=== PATIENT | female | born 1950 | race Caucasian/White ===

== ENCOUNTER 2016-08-13 17:18 | Emergency (ER) | payer MEDICARE, OTHER ==
[~2016-08-13] VITALS: Ht 165.1 cm; Wt 98.9 kg
[~2016-08-13 17:18] MED LIST: ACET325T21 PO; ANAS1TAB3 PO; APIX5TAB PO; ASPI-482 PO; CALC200T3 PO; CARV3.122 PO; CETI10TA22 PO; CHOL20002 PO; CIPR250T30 PO; DILT120C80 PO; DILT240C60 PO; DRON400T PO; FLUT1DIS5 IH; FURO-68 PO; FURO-69 PO; LANS30CA66 PO; LISI-334 PO; LISI-338 PO; LORA10TA68 PO; MAGN400C PO; METO25TA4 PO; METO25TA9 PO; METO50TA2 PO; MOME13HF2 IH; MULT1TAB52 PO; OMEG1CAP27 PO; ONDA4TAB7 IV; PROVENTIL HFA6.7 GM IH; SOTA120T14 PO; TRIA1TAB3 PO; [UNRECOGNIZED DRUG - CODE] PO
[2016-08-13 17:47] LABS: BASO # 0.1 x10^3/uL (0.0-0.2); BASO % 1 % (0-3); EOS % 3 % (0-3); HEMATOCRIT 41.3 % (36.0-47.0); HEMOGLOBIN 13.6 g/dL (12.0-15.5); LYMPH # 1.4 x10^3/uL (1.0-4.8); LYMPH % 14 % (24-48); MEAN CORPUSCULAR HEMOGLOBIN 28 pg (25-35); MEAN CORPUSCULAR HGB CONC 33 g/dL (31-37); MEAN CORPUSCULAR VOLUME 87 fL (79-100); MONO % 8 % (0-9); NEUT % 75 % (31-73); PLATELET COUNT 176 x10^3/uL (140-400); RED BLOOD COUNT 4.78 x10^6/uL (3.50-5.40)
[2016-08-13 18:01] LABS: CALCIUM 8.9 mg/dL (8.5-10.1); CREATININE 0.9 mg/dL (0.6-1.0); GFR 62.5; POTASSIUM 4.2 mmol/L (3.5-5.1)
--- NOTE | 2016-08-13 18:27 | PHYS DOC ---
Past Medical History Past Medical History: A-Fib, CAD, Cancer, CHF, Other Additional Past Medical Histor: breast cancer, cardiomyopathy Past Surgical History: Appendectomy, Cancer Surgery, Hysterectomy, Knee Replacement, Oophorectomy, Pacemaker, Other Additional Past Surgical Histo: stomach tumor removed, oral tumor removed, cardiac ablation Alcohol Use: None Drug Use: None Adult General Chief Complaint Chief Complaint: DIZZY/LIGHT HEADED HPI HPI Patient is a 66 year old female with A fib POD 2 from [place] ablation at [facility] who presents with 3 episodes of presyncope after walking. States she will stand up and walk and be fine. Will sit down and feels lightheaded, palpitations, and some vision narrowing for some seconds to minutes. Denies current palpitations. No chest pain, dyspnea, f/c, n/v, diarrhea, dysuria, leg pain or swelling, cough. She called [facility] cardiology clinic and was instructed to go to the ED, so she came here because it is closer to home. She is currently asymptomatic. She saw Dr. Lyles, cardiology, most recently for procedure at [facility]. Review of Systems Review of Systems Constitutional: Denies fever or chills [] Eyes: Denies change in visual acuity, redness, or eye pain [] HENT: Denies nasal congestion or sore throat [] Respiratory: Denies cough or shortness of breath [] Cardiovascular: No additional information not addressed in HPI [] GI: Denies abdominal pain, nausea, vomiting, bloody stools or diarrhea [] : Denies dysuria or hematuria [] Musculoskeletal: Denies back pain or joint pain [] Integument: Denies rash or skin lesions [] Neurologic: Denies headache, focal weakness or sensory changes [] Endocrine: Denies polyuria or polydipsia [] Current Medications Current Medications Current Medications Medications (Trade) Dose Ordered Sig/Harry Start Time Stop Time Status Last Admin Dose Admin Metoprolol Succinate (Toprol Xl) 75 mg 1X ONCE 08/13/16 19:00 08/13/16 19:01 DC 08/13/16 19:06 75 MG Metoprolol Tartrate (Lopressor) 5 mg 1X ONCE 08/13/16 18:45 08/13/16 19:02 DC Allergies Allergies Allergies Coded Allergies Type Severity Reaction Last Updated Verified thiopental Allergy Intermediate Rash 08/01/13 Yes amoxicillin Adverse Reaction Intermediate headache 07/01/15 Yes clavulanic acid Adverse Reaction Intermediate headache 07/01/15 Yes Physical Exam Physical Exam Constitutional: Well developed, well nourished, no acute distress, non-toxic appearance. [] HENT: Normocephalic, atraumatic, bilateral external ears normal, oropharynx moist, nose normal. [] Eyes: PERRLA, EOMI. [] Neck: Normal range of motion, supple. [] Cardiovascular: Irregular rhythm [] Lungs & Thorax: Bilateral breath sounds clear to auscultation [] Abdomen: Bowel sounds normal, soft, no tenderness. [] Skin: Warm, dry, no erythema, no rash. [] Back: No tenderness, no CVA tenderness. [] Extremities: No tenderness, ROM intact, bilateral 1+ lower extremity edema. [] Neurologic: Alert and oriented X 3, normal motor function, normal sensory function, no focal deficits noted. [] Psychologic: Affect normal, judgement normal, mood normal. [] Current Patient Data Vital Signs Vital Signs Date Time Temp Pulse Resp B/P (MAP) Pulse Ox O2 Delivery O2 Flow Rate FiO2 08/13/16 20:00 64 28 109/57 (74) 94 Room Air 08/13/16 17:20 98.3 98.3 Lab Values Laboratory Tests Test 08/13/16 17:37 White Blood Count 10.0 x10^3/uL (4.0-11.0) Red Blood Count 4.78 x10^6/uL (3.50-5.40) Hemoglobin 13.6 g/dL (12.0-15.5) Hematocrit 41.3 % (36.0-47.0) Mean Corpuscular Volume 87 fL (79-100) Mean Corpuscular Hemoglobin 28 pg (25-35) Mean Corpuscular Hemoglobin Concent 33 g/dL (31-37) Red Cell Distribution Width 15.0 % (11.5-14.5) H Platelet Count 176 x10^3/uL (140-400) Neutrophils (%) (Auto) 75 % (31-73) H Lymphocytes (%) (Auto) 14 % (24-48) L Monocytes (%) (Auto) 8 % (0-9) Eosinophils (%) (Auto) 3 % (0-3) Basophils (%) (Auto) 1 % (0-3) Neutrophils # (Auto) 7.5 x10^3uL (1.8-7.7) Lymphocytes # (Auto) 1.4 x10^3/uL (1.0-4.8) Monocytes # (Auto) 0.8 x10^3/uL (0.0-1.1) Eosinophils # (Auto) 0.2 x10^3/uL (0.0-0.7) Basophils # (Auto) 0.1 x10^3/uL (0.0-0.2) Sodium Level 139 mmol/L (136-145) Potassium Level 4.2 mmol/L (3.5-5.1) Chloride Level 102 mmol/L (98-107) Carbon Dioxide Level 31 mmol/L (21-32) Anion Gap 6 (6-14) Blood Urea Nitrogen 15 mg/dL (7-20) Creatinine 0.9 mg/dL (0.6-1.0) Estimated GFR (Cockcroft-Gault) 62.5 Glucose Level 144 mg/dL (70-99) H Calcium Level 8.9 mg/dL (8.5-10.1) Laboratory Tests 08/13/16 17:37 Laboratory Tests 08/13/16 17:37 EKG EKG EKG as interpreted by me as atrial fibrillation, rate 75, no ST-T changes Course & Med Decision Making Course & Med Decision Making Pertinent Labs and Imaging studies reviewed. (See chart for details) Laboratory evaluation is unremarkable. Medtr[employer] ICD/pacemaker interrogation reveals multiple episodes of atrial fibrillation since last interrogation yesterday morning, 11%, lipase lasting about 12 minutes. Times correlate with times of symptoms. She had a for ablation with RVR in the 110s and 120s while observed here. I discussed the case with Dr. Vieyra, [facility] cardiology, who recommends dose of metoprolol IV for rate control and is willing to accept for admission if patient wishes; otherwise recommends dispo appropriately after response and to follow up with Dr. Lyles closely. Metoprolol IV was ordered, but she converted prior to administration to a normal sinus rhythm. She was given early dose of metoprolol XR at that time. Admission was offered. However, she is ambulatory without symptoms with a steady gait and wants to go home for outpatient f/u. Return precautions given. She and understand and agree with plan. Dragon Disclaimer Dragon Disclaimer This electronic medical record was generated, in whole or in part, using a voice recognition dictation system. Departure Departure Impression: Primary Impression: Afib Disposition: HOME, SELF-CARE Condition: STABLE Referrals: LEXY DE LA CRUZ (PCP) Patient Instructions: Atrial Fibrillation, [id number] Additional Instructions: Follow-up with your journal entry audit clerk on Tuesday morning. Return for any concerns. Problem Qualifiers Primary Impression: Afib Atrial fibrillation type: paroxysmal Qualified Codes: I48.0 - Paroxysmal atrial fibrillation Maritza BATISTA MD Aug 13, 2016 18:26
[2016-08-13] MEDS ORDERED: METOPROLOL TARTRATE 5 MG/5 ML VIAL. IVP ONE (18:45)
[2016-08-13] MEDS ORDERED: METOPROLOL SUCC 24HR ER 25 MG TAB.ER.24H. PO ONE (19:00)
[2016-08-13 20:00] VITALS: BP 109/57
--- NOTE | 2016-08-14 10:54 | EKG ---
[facility] [address] [place] [address] Test Date: 2016-08-13 Test Time: 17:26:23 Pat Name: JENNY NANCE Department: Room: Gender: F Academic Assistant: : 1950 Requested By: Maritza BATISTA Order Number: [id number] Reading MD: Brandy Hemphill Measurements Intervals [place] Rate: 75 P: NC: QRS: 27 QRSD: 96 T: 65 QT: 400 QTc: 449 Interpretive Statements SINUS RHYTHM T ABNORMALITY IN HIGH LATERAL LEADS Electronically Signed On 08-14-2016 19:42:15 CDT by Brandy Hemphill
== END 2016-08-13 20:10 | disposition home or self-care (01) ==
LOC: ER 17:18
DX: I48.0 Paroxysmal atrial fibrillation (principal); R55 Syncope and collapse; I25.10 Atherosclerotic heart disease of native coronary artery without angina pectoris; I50.9 Heart failure, unspecified; I42.9 Cardiomyopathy, unspecified; Z90.49 Acquired absence of other specified parts of digestive tract; Z90.710 Acquired absence of both cervix and uterus; Z96.659 Presence of unspecified artificial knee joint; Z95.0 Presence of cardiac pacemaker; Z90.721 Acquired absence of ovaries, unilateral; Z88.8 Allergy status to other drugs, medicaments and biological substances; Z88.1 Allergy status to other antibiotic agents
CPT/HCPCS: 36415; 80048; 85027; 93005; 99285-25

== ENCOUNTER 2017-06-03 18:45 | Emergency (ER) | payer MEDICARE, OTHER | END 2017-06-03 21:58 | disposition home or self-care (01) | LOC: ER 21:58 | DX: H72.92 Unspecified perforation of tympanic membrane, left ear (principal); I48.91 Unspecified atrial fibrillation; I50.9 Heart failure, unspecified; I25.10 Atherosclerotic heart disease of native coronary artery without angina pectoris; Z88.1 Allergy status to other antibiotic agents; Z88.8 Allergy status to other drugs, medicaments and biological substances | CPT/HCPCS: 99283 ==

== ENCOUNTER → 2019-08-24 | Outpatient (CLI) | payer MEDICARE ==
[2017-06-03 20:47] VITALS: BP 95/54
[~2019-08-24] MED LIST changes: -ANAS1TAB3 PO; +ANAS1TAB47 PO; +CARV3.1210 PO; -CARV3.122 PO; -CETI10TA22 PO; +CETI10TA24 PO; +DIGO125T3 PO; -DILT120C80 PO; +DILT120C99 PO; +DOFE250C PO; +METO-239 PO; +METO-269 PO; -METO25TA9 PO; -METO50TA2 PO; +METO50TA6 PO; +MULT-445 PO; -MULT1TAB52 PO; +OFLO5DRO7 AS; +SPIR25TA5 PO
--- NOTE | 2019-08-24 15:21 | CARD ---
MR#: [id number] Date of Study: 08/24/2019 Ordering Physician: MICHELLE OCASIO, Referring Physician: MICHELLE OCASIO, Tech: Mitra Espino [facility] APPROVED REPORT EXAM: Two-dimensional and M-mode echocardiogram with Doppler and color Doppler. Other Information Quality : Good INDICATION Atrial Fibrillation Hx: Ablation Surgery/Intervention ICD/Pacemaker: Date: 2012 2D DIMENSIONS RVDd3.0 (2.9-3.5cm)Left Atrium(2D)4.2 (1.6-4.0cm) IVSd1.7 (0.7-1.1cm)Aortic Root(2D)2.8 (2.0-3.7cm) LVDd4.0 (3.9-5.9cm)LVOT Diameter2.1 (1.8-2.4cm) PWd1.0 (0.7-1.1cm)LVDs2.5 (2.5-4.0cm) FS (%) 36.1 %SV45.9 ml LVEF(%)65.0 (>50%) Aortic Valve AoV Peak Padilla.503.3cm/sAoV HXO406.7cm AO Peak GR.101.3mmHgLVOT Peak Padilla.459.4cm/s AO Mean GR.60mmHgAVA (VMAX)3.17cm2 LANCE (VTI)3.10cm2 Mitral Valve MV E Bcyvnxpd854.5cm/sMV DECEL EOAT288ca MV A Ulnxphyr52.9cm/sE/A Ratio2.2 Tricuspid Valve TR P. Vfgmxodj186qm/sRAP NEVPNQLE0dxCk TR Peak Gr.28ucNsPPXC71qdBn Pulmonary Vein S1 Qklqqhhe03.6cm/sD2 Owdkcjea48.5cm/s LEFT VENTRICLE The left ventricle is normal size. There is moderate asymmetric septal hypertrophy. The left ventricu lar systolic function is normal. The Ejection Fraction is 60-65%. There is normal LV segmental wall m otion. Tissue Doppler imaging reveals moderate left ventricular diastolic dysfunction. RIGHT VENTRICLE The right ventricle is normal size. The right ventricular systolic function is normal. There is a pac emaker lead in the right ventricle. ATRIA The left atrium is mildly dilated. The right atrium size is normal. A pacemaker is seen in the right atrium consistent with history. The interatrial septum is intact with no evidence for an atrial septa l defect or patent foramen ovale as noted on 2-D or Doppler imaging. AORTIC VALVE The aortic valve is calcified but opens well. Doppler and Color Flow revealed trace to mild aortic re gurgitation. There is no significant aortic valvular stenosis. There is a hypertrophic obstructive ca rdiomyopathy with left ventricular outflow tract obstruction of 207 mmHg with Valsalva maneuver. MITRAL VALVE Systolic anterior motion of mitral valve leaflet. There is no evidence of mitral valve prolapse. Ther e is no mitral valve stenosis. Doppler and Color-flow revealed mild to moderate eccentric posterioril y directed mitral regurgitation. TRICUSPID VALVE The tricuspid valve is normal in structure and function. Doppler and Color Flow revealed mild tricusp id regurgitation. There is severe pulmonary hypertension. The PA pressure was estimated at 92 mmHg. T here is no tricuspid valve stenosis. PULMONIC VALVE The pulmonic valve is not well visualized. Doppler and Color Flow revealed trace to mild pulmonic kelly vular regurgitation. There is no pulmonic valvular stenosis. GREAT VESSELS The aortic root is normal in size. The ascending aorta is not well seen. The IVC is normal in size an d collapses >50% with inspiration. PERICARDIAL EFFUSION There is no evidence of significant pericardial effusion. Critical Notification Critical Value: No <Conclusion> The left ventricular systolic function is normal. The Ejection Fraction is 60-65%. There is normal LV segmental wall motion. Tissue Doppler imaging reveals moderate left ventricular diastolic dysfunction. PPM/ICD lead noted in the right atrium and right ventricle. 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 Systolic anterior motion of mitral valve leaflet. Mild to moderate eccentric posteriorily directed mitral regurgitation. Mild tricuspid regurgitation. There is severe pulmonary hypertension. The PA pressure was estimated at 92 mmHg. Signed by : Dayron Ramirez, Electronically Approved : 08/24/2019 15:20:58
== END | disposition home or self-care (01) ==
LOC: ECHO 12:42
PROVIDERS: ATTEND Internal Medicine Cardiovascular Disease
DX: I08.8 Other rheumatic multiple valve diseases (principal); I42.1 Obstructive hypertrophic cardiomyopathy; I48.0 Paroxysmal atrial fibrillation; I27.20 Pulmonary hypertension, unspecified
CPT/HCPCS: 93306

== ENCOUNTER 2021-01-27 09:50 | Day surgery (SDC) | payer MEDICARE ==
[~2021-01-27] VITALS: Ht 165.1 cm; Wt 81.0 kg
[~2021-01-27 09:50] MED LIST changes: +AMIO200T53 PO; -CETI10TA24 PO; +CETI10TA74 PO; -DRON400T PO; +DRON400T6 PO; +HYDR-2868 PO; +IV RINGERS,LACTATED 1000ML 1,000 ML IV SCH; -LISI-334 PO; -LISI-338 PO; +LISI20TA18 PO; +LISI5TAB15 PO; +LORA10CA PO
[2021-01-27 10:19] VITALS: BP 154/77
[2021-01-27] MEDS ORDERED: BENZOCAINE ONE 20% MUCOSAL SPRAY. MM (10:45)
[2021-01-27] MEDS ORDERED: LIDOCAINE 2% VISCOUS 15 ML SOLUTION. SWSW ONE (10:45)
[2021-01-27] MEDS ORDERED: LIDOCAINE 2% TOPICAL JELLY 30GM TUBE. TP ONE (10:45)
--- NOTE | 2021-01-27 10:48 | EKG ---
[facility] [address] [place] [address] Test Date: 2021-01-27 Test Time: 10:45:13 Pat Name: JENNY NANCE Department: Room: Gender: F Dental Amalgam Processor: : 1950 Requested By: MICHELLE OCASIO Order Number: [id number] Reading MD: Measurements Intervals [place] Rate: 78 P: NE: QRS: 77 QRSD: 132 T: 52 QT: 450 QTc: 517 Interpretive Statements IRREGULAR RHYTHM, NO P-WAVE FOUND NON SPECIFIC INTRAVENTRICULAR BLOCK QRS(T) CONTOUR ABNORMALITY CONSISTENT WITH ANTEROLATERAL INFARCT AGE UNDETERMINED ABNORMAL ECG RI6.01 Compared to ECG 08/13/2016 17:26:23 Myocardial infarct finding now present Sinus rhythm no longer present T-wave abnormality no longer present
[2021-01-27 11:06] LABS: CALCIUM 9.1 mg/dL (8.5-10.1); CREATININE 0.8 mg/dL (0.6-1.0); GFR 70.5; POTASSIUM 4.3 mmol/L (3.5-5.1)
[2021-01-27 11:07] LABS: MAGNESIUM 2.2 mg/dL (1.8-2.4)
[2021-01-27] MEDS ORDERED: PHENYLEPHRINE in 0.9% NACL PF 1 MG/10 ML SYRINGE. IV ONE (12:00)
[2021-01-27] MEDS ORDERED: PROPOFOL 10 MG/ML (20ML) VIAL. IV ONE (12:15)
[2021-01-27] MEDS ORDERED: LIDOCAINE 2% PF 5 ML VIAL. ONE (12:15)
--- NOTE | 2021-01-27 13:11 | EKG ---
[facility] [address] [place] [address] Test Date: 2021-01-27 Test Time: 13:08:01 Pat Name: JENNY NANCE Department: Room: Gender: F Male Impersonator: S[place] : 1950 Requested By: MICHELLE OCASIO Order Number: [id number] Reading MD: Measurements Intervals [place] Rate: 60 P: 64 OR: 252 QRS: 67 QRSD: 108 T: 61 QT: 484 QTc: 484 Interpretive Statements SINUS RHYTHM PROLONGED OR INTERVAL LEFT ATRIAL ABNORMALITY LOW LIMB LEAD VOLTAGE PROLONGED QT ABNORMAL ECG RI6.02 Compared to ECG 01/27/2021 10:45:13 First degree AV block now present Atrial abnormality now present Prolonged QT interval now present Myocardial infarct finding no longer present
[2021-01-27 13:22] VITALS: BP 118/51
--- NOTE | 2021-01-27 18:14 | CARD ---
MR#: [id number] Date of Study: 01/27/2021 Ordering Physician: MICHELLE OCASIO, Referring Physician: MICHELLE OCASIO, Tech: Ghazala Asif [facility] APPROVED REPORT EXAM: Two-dimensional and M-mode echocardiogram with Doppler and color Doppler. INDICATION Atrial Fibrillation Reason For Test : Rule out Intracardiac Thrombus. PROCEDURE After obtaining informed consent, patient underwent transesophageal echo in the PACU. Type of Sedation : General Anesthesia Sedation was administered by Anesthesia service. Sedation was achieved with Propofol 100mg intravenously. Transesophageal probe was inserted and advanced into esophagus by Giuseppe Ocasio MD. The NAM was performed without complications. Synchronized Cardioversion attempted: Successful Synchronized Cardioversion acheived with 200 Joules after 1 attempt(s). Rhythm following Synchronized Cardioversion: Normal Sinus Rhythm Throughout the procedure, the blood pressure, pulse oximetry, cardiac rhythm, and rate were monitored . LEFT VENTRICLE The left ventricle is normal size. There is mild concentric left ventricular hypertrophy. The left ve ntricular systolic function is normal and the ejection fraction is within normal range. EF 55% There is normal LV segmental wall motion. Tissue Doppler imaging reveals moderate left ventricular diastoli c dysfunction. No left ventricle thrombus noted on this study. There is no left ventricular aneurysm. RIGHT VENTRICLE The right ventricle is normal size. There is normal right ventricular wall thickness. The right ventr icular systolic function is normal. There is an ICD lead in the RA/RV. ATRIA The left atrium is moderately dilated. The right atrium is moderately dilated. There is a small PFO n oted on Doppler imaging, agitated contrast saline was not performed on this study. There is no thromb us noted in the left atrial appendage. AORTIC VALVE The aortic valve is normal in structure and function. Doppler and Color Flow revealed no significant aortic regurgitation. There is no significant aortic valvular stenosis. MITRAL VALVE Mitral annular calcification is mild. The mitral valve is calcified but opens well with a restricted posterior leaflet. There is no evidence of mitral valve prolapse. There is no mitral valve stenosis. Doppler and Color-flow revealed mild mitral regurgitation. TRICUSPID VALVE The tricuspid valve is normal in structure and function. Doppler and Color Flow revealed mild tricusp id regurgitation. There is no tricuspid valve stenosis. PULMONIC VALVE The pulmonary valve is normal in structure and function. Doppler and Color Flow revealed no pulmonic valvular regurgitation. There is no pulmonic valvular stenosis. GREAT VESSELS The aortic root is normal in size. The ascending aorta is normal in size. The IVC is normal in size a nd collapses >50% with inspiration. PERICARDIAL EFFUSION There is no pleural effusion. Critical Notification Critical Value: No <Conclusion> The left ventricular systolic function is normal and the ejection fraction is within normal range. EF 55% There is normal LV segmental wall motion. There is no thrombus noted in the left atrial appendage. There is a small PFO noted on Doppler imaging, agitated contrast saline was not performed on this dolores dy. Successful CVN to SR. Signed by : Michelle Ocasio, Electronically Approved : 01/27/2021 18:14:30
== END 2021-01-27 14:24 | disposition home or self-care (01) ==
LOC: SURG 09:50
PROVIDERS: ATTEND Internal Medicine Cardiovascular Disease
DX: I48.91 Unspecified atrial fibrillation (principal); I07.1 Rheumatic tricuspid insufficiency; I11.0 Hypertensive heart disease with heart failure; I50.9 Heart failure, unspecified; J45.909 Unspecified asthma, uncomplicated; M19.90 Unspecified osteoarthritis, unspecified site; K21.9 Gastro-esophageal reflux disease without esophagitis; F41.9 Anxiety disorder, unspecified; Z85.3 Personal history of malignant neoplasm of breast; Z90.710 Acquired absence of both cervix and uterus; Z98.890 Other specified postprocedural states; Z79.899 Other long term (current) drug therapy; Z88.1 Allergy status to other antibiotic agents; Z88.8 Allergy status to other drugs, medicaments and biological substances
CPT/HCPCS: 36415; 80048; 83735; 92960; 93005; 93312; J1650; J2370; J2704